=== PATIENT | female | born 1950 | race Hispanic/Latino ===

== ENCOUNTER → 2018-08-11 | Day surgery (SDC) | payer MEDICARE ==
[~2018-08-11] MED LIST: FENTANYL CITRATE/PF 100MCG/2 ML INJ ONE; GABAPENTIN300 MG PO; LEVOTHYROXINE100 MC1 PO; LOSARTAN POTASS25 MG PO; MELOXICAM7.5 MG PO; METFORMIN HCL500 MG PO; MIDAZOLAM HCL 2 MG/2 ML VIAL ONE; OMEPRAZOLE40 MG PO; OR PHACO EYE KIT ONE; PREOP PHACO EYE KIT ONE; SIMVASTATIN40 MG PO
[2018-08-11 11:30] VITALS: BP 159/91
--- OUTSIDE RECORDS SUMMARY | 2018-08-11 14:41 | XMS REPORT ---
Author Author Yudelka Fontaine e[employer] Address Unknown Phone Unavailable Care Team Providers [facility] Agent Name Role Phone Yudelka Fontaine CP Unavailable Allergies, Adverse Reactions, Alerts Substance Reaction Event Type N.K.D.A. Info Not Available Non Drug Allergy Problems Problem Type Condition Code Onset Dates Condition Status Assessment Primary generalized (osteo)arthritis M15.0 Active Assessment Low back pain M54.5 Active Problem Low back pain M54.5 Active Problem Difficulty in walking, not elsewhere classified R26.2 Active Problem Primary generalized (osteo)arthritis M15.0 Active Assessment Age-related osteoporosis without current pathological fracture M81.0 Active Assessment Vitamin deficiency, unspecified E56.9 Active Problem Age-related osteoporosis without current pathological fracture M81.0 Active Problem Vitamin deficiency, unspecified E56.9 Active Medications Medication Code System Code Instructions Start Date End Date Status Dosage Prolia [facility] 29552686769 60 MG/ML Subcutaneous q 6 months Active as directed One Metformin HCl ND 86034358735 500 mg Orally Once a day Active 1/2 half tablet Prolia ND 31070848830 60 MG/ML Subcutaneous q 6 months Active as directed One Levothyroxine Sodium ND 11813830125 125 MCG Orally Once a day Active 1 tablet Losartan Potassium ND 85734795638 25 MG Orally Once a day Active 1 tablet Simvastatin ND 19396677651 40 MG Orally Once a day Active 1 tablet in the evening Alendronate Sodium ND 63932131748 70 MG Orally Once a week Inactive 1 tablet Omeprazole ND 97137588863 20 MG Orally Once a day Active 2 capsules Gabapentin ND 77141569266 300 MG Orally Three times a day Active 1 capsule Vital Signs Date/Time: Jul 01, 2017 BMI 30.64 Index Weight 173 lbs Blood Pressure Systolic 126 mm Hg Respiratory Rate 16 /min Cardiac Monitoring Heart Rate 61 /min Temperature 97.6 F Blood Pressure Diastolic 71 mm Hg Results No Known Results Summary Purpose eClinicalWorks Submission
--- OUTSIDE RECORDS SUMMARY | 2018-08-11 14:41 | XMS REPORT ---
Author Author Yudelka Fontaine [facility] e[employer]Works Address Unknown Phone Unavailable Care Team Providers Care [facility] Representative Name Role Phone Yudelka Fontaine CP Unavailable Allergies No Known Allergies Problems Problem Type Condition Code Onset Dates Condition Status Problem Low back pain M54.5 Active Problem Difficulty in walking, not elsewhere classified R26.2 Active Problem Primary generalized (osteo)arthritis M15.0 Active Problem Age-related osteoporosis without current pathological fracture M81.0 Active Problem Vitamin deficiency, unspecified E56.9 Active Medications No Known Medications Results No Known Results Summary Purpose eClinicalWorks Submission
--- OUTSIDE RECORDS SUMMARY | 2018-08-11 14:41 | XMS REPORT | Continuity of Care Document ---
Author Author [facility] Interface Address Unknown Phone Unavailable Problems Problem Status Onset Date Classification Date Reported Comments Source Low back pain Active Diagnosis 11/27/2017 [facility] Difficulty in walking, not elsewhere classified Active Problem 11/27/2017 [facility] Primary generalized arthritis Active Diagnosis 11/27/2017 [facility] Age-related osteoporosis without current pathological fracture Active Diagnosis 11/27/2017 [facility] Vitamin deficiency, unspecified Active Diagnosis 11/27/2017 [facility] Medications Medication Details Route Status Patient Instructions Ordering Provider Order Date Source Prolia as directed One Subcutaneous Active 60 MG/ML Subcutaneous q 6 months [facility] Metformin HCl 1/2 half tablet Orally Active 500 mg Orally Once a day [facility] Levothyroxine Sodium 1 tablet Orally Active 125 MCG Orally Once a day [facility] Losartan Potassium 1 tablet Orally Active 25 MG Orally Once a day [facility] Simvastatin 1 tablet in the evening Orally Active 40 MG Orally Once a day [facility] Alendronate Sodium 1 tablet Orally Active 70 MG Orally Once a week [facility] Omeprazole 2 capsules Orally Active 20 MG Orally Once a day [facility] Gabapentin 1 capsule Orally Active 300 MG Orally Three times a day [facility] Allergies, Adverse Reactions, Alerts Substance Category Reaction Severity Reaction type Status Date Reported Comments Source N.K.D.A. Adverse Reaction Info Not Available Adverse Reaction Active 07/01/2017 [facility] Immunizations Immunization Date Given Site Status Last Updated Comments Source Results Order Name Results Value Reference Range Date Interpretation Comments Source Vital Signs Vital Sign Value Date Comments Source Weight 173 07/01/2017 [facility] Systolic (mm Hg) 126 07/01/2017 [facility] Respitory Rate 16 07/01/2017 [facility] Heart Rate 61 07/01/2017 [facility] Temperature Oral (F) 97.6 F 07/01/2017 [facility] Diastolic (mm Hg) 71 07/01/2017 [facility] Encounters Location Location Details Encounter Type Encounter Number Reason For Visit Attending Provider ADM Date DC Date Status Source Procedures Procedure Code Date Perfomer Comments Source
== END | disposition home or self-care (01) ==
LOC: OR 07:53
PROVIDERS: ATTEND Ophthalmology
DX: H25.11 Age-related nuclear cataract, right eye (principal); E11.9 Type 2 diabetes mellitus without complications; I10 Essential (primary) hypertension; E78.5 Hyperlipidemia, unspecified; M06.9 Rheumatoid arthritis, unspecified; M19.90 Unspecified osteoarthritis, unspecified site; I83.90 Asymptomatic varicose veins of unspecified lower extremity; E03.9 Hypothyroidism, unspecified; K21.9 Gastro-esophageal reflux disease without esophagitis; Z79.84 Long term (current) use of oral hypoglycemic drugs
CPT/HCPCS: 36415; 66984; 82948; J2250; V2632

== ENCOUNTER → 2018-08-25 | Day surgery (SDC) | payer MEDICARE ==
[2018-08-25 15:10] VITALS: BP 126/71
== END | disposition home or self-care (01) ==
LOC: OR 12:19
PROVIDERS: ATTEND Ophthalmology
DX: H25.12 Age-related nuclear cataract, left eye (principal); I10 Essential (primary) hypertension; E11.9 Type 2 diabetes mellitus without complications; Z79.84 Long term (current) use of oral hypoglycemic drugs; E78.5 Hyperlipidemia, unspecified
CPT/HCPCS: 36415; 66984; 82948; J2250; V2632